=== PATIENT | female | born 1970 | race Caucasian/White ===

== ENCOUNTER 2024-03-24 15:51 | Emergency (ER) | payer MEDICAID, SELFPAY ==
[2024-03-24 16:00] VITALS: BP 134/71; PULSE 102; TEMP 37; O2SAT 98; BMI 28.6
[2024-03-24] MEDS: FAMOTIDINE/PF 20 MG/2 ML VIAL IV (16:13)
--- NOTE | 2024-03-24 16:24 | ED_ITS ---
HPI - Medical Clearance General Chief complaint: Medical Clearance Stated complaint: Intoxication Time Seen by Provider: 03/24/24 15:58 Source: patient Mode of arrival: Wheelchair Limitations: no limitations History of Present Illness HPI Narrative: The patient presenting to us for medical clearance after she presented to [facility] facility for detox, patient mentioned that she was drinking before arrival she denies any complaint except for some epigastric discomfort, the patient did not show any distress and she actually got out of the room to light a cigarette Patient denies any complaints otherwise Related Information Home Medications ?Medication ?Instructions ?Recorded ?Confirmed atorvastatin 20 mg tablet 20 mg PO DAILY 03/24/24 03/24/24 buspirone 10 mg tablet 10 mg PO BID 03/24/24 03/24/24 carbamazepine 200 mg tablet 200 mg PO Q12H 03/24/24 03/24/24 cetirizine 10 mg tablet 10 mg PO DAILY 03/24/24 03/24/24 clonidine HCl 0.1 mg tablet 0.1 mg PO Q8H 03/24/24 03/24/24 cyclobenzaprine 10 mg tablet 10 mg PO Q8H 03/24/24 03/24/24 cyclobenzaprine 5 mg tablet 5 mg PO Q8H 03/24/24 03/24/24 diazepam 5 mg tablet 5 mg PO DAILY 03/24/24 03/24/24 dicyclomine 10 mg capsule 10 mg PO TID 03/24/24 03/24/24 doxepin 25 mg capsule 25 mg PO TID 03/24/24 03/24/24 escitalopram oxalate 10 mg tablet 10 mg PO DAILY 03/24/24 03/24/24 famotidine 40 mg tablet 40 mg PO DAILY 03/24/24 03/24/24 fluoxetine 10 mg capsule 50 mg PO DAILY 03/24/24 03/24/24 gabapentin 300 mg capsule 300 mg PO DAILY 03/24/24 03/24/24 hydroxyzine HCl 25 mg tablet 25 mg PO Q8H 03/24/24 03/24/24 Previous Rx's ?Medication ?Instructions ?Recorded potassium chloride 20 mEq oral 40 meq PO DAILY 5 days #5 ea 03/24/24 packet Allergies Allergy/AdvReac Type Severity Reaction Status Date / Time No Known Drug Allergies Allergy Verified 03/24/24 16:04 Review of Systems ROS Status of ROS 10 or more systems reviewed and unremark able except as noted in history and below Exam Narrative Exam Narrative: Nurses notes and vital signs reviewed and patient is not hypoxic. General: Well-appearing and in no apparent distress. Skin: Warm, dry, no pallor noted. No rash. Head: Normocephalic, atraumatic. Neck: Supple, non-tender. Eye: Pupils are equal, round and EOMI. No scleral icterus. Ears, Nose, Mouth, and Throat: TM are clear, no nasal mucosal hypertrophy. Oral mucosa is moist, no posterior oropharynx erythema, uvula is mid-line Cardiovascular: Regular Rate and Rhythm without murmur, gallop or rub. Respiratory: No accessory muscle use or respiratory distress. Lungs are clear to auscultation, no wheezing, rales or rhonchi Chest Wall: no tenderness Back: No midline thoracic or lumbar vertebral tenderness. No CVA tenderness Musculoskeletal: normal ROM, no calf or popliteal tenderness, no lower extremity edema/swelling GI: Abdomen is soft, non-distended. Normal bowel sounds. No masses appreciated. No tenderness to palpation. No rebound, guarding, or rigidity noted. Neurological: A&O x1 and intoxicated. No cranial nerve dysfunction observed. No truncal ataxia. Moves all extremities. Sensation intact. Psychiatric: Cooperative and interactive. Normal mood and affect. Constitutional Vital Signs, click to edit/add: Last Vital Signs Temp 98.6 F 03/24/24 16:00 Pulse 102 H 03/24/24 16:00 Resp 18 03/24/24 16:00 BP 134/71 03/24/24 16:00 Pulse Ox 98 03/24/24 16:00 O2 Del Method Room Air 03/24/24 16:00 Course Vital Signs Vital signs: Vital Signs Temperature 98.6 F 03/24/24 16:00 Pulse Rate 102 H 03/24/24 16:00 Respiratory Rate 18 03/24/24 16:00 Blood Pressure 134/71 03/24/24 16:00 Pulse Oximetry 98 03/24/24 16:00 Oxygen Delivery Method Room Air 03/24/24 16:00 Temperature 98.6 F 03/24/24 16:00 Pulse Rate 102 H 03/24/24 16:00 Respiratory Rate 18 03/24/24 16:00 Blood Pressure 134/71 03/24/24 16:00 Pulse Oximetry 98 03/24/24 16:00 Oxygen Delivery Method Room Air 03/24/24 16:00 MDM - Medical Clearance MDM Narrative Medical decision making narrative: The patient EKG showing sinus rhythm with a heart rate of 89 no hypokalemic changes The patient CBC and chemistry shows a sodium of 124 which is according to the patient history is mostly chronic although the patient alcohol level was above 350 Potassium is 2.7 with no EKG changes Patient provided with potassium in the ER she did not want to be in the ER and she was asking to leave as soon as she got here and she also got out of the ER to smoke a cigarette and came back The patient was provided with p.o. potassium in the ER she was also provided with a prescription of potassium Regarding the patient's sodium is mostly at moderate level and mostly chronic with the patient history the patient will be discharged back to [facility] for detox and I did speak with Enoch in the management of [facility] and details of the management of the patient regarding repeating the sodium tomorrow and encouraging p.o. fluid today And I did explain the importance of not correcting the sodium very quickly also the patient will be provided with p.o. potassium here she was discharged with p.o. potassium to go home and the level of potassium need to be repeated Lab Data Labs: Lab Results 03/24/24 Range/Units 16:11 WBC 6.6 (4.0-11.0) 10^3/uL RBC 4.08 L (4.20-5.40) 10^6/uL Hgb 11.9 L (12.0-16.0) g/dL Hct 34.2 L (36.0-48.0) % MCV 83.8 (81.0-99.0) fL MCH 29.2 (26.7-34.0) pg MCHC 34.8 (29.9-35.2) g/dL RDW 15.6 H (11.0-15.0) % Plt Count 223 (150-450) 10^3/uL MPV 9.5 (9.5-13.5) fL Neut % (Auto) 57.9 (43.0-75.0) % Lymph % (Auto) 31.0 (20.5-60.0) % [place] % (Auto) 10.1 (1.7-12.0) % Eos % (Auto) 0.3 L (0.9-7.0) % Baso % (Auto) 0.5 (0.2-2.0) % Neut # (Auto) 3.8 (1.4-6.5) 10^3/uL Lymph # (Auto) 2.1 (1.2-3.8) 10^3/uL [place] # (Auto) 0.7 (0.3-0.8) 10^3/uL Eos # (Auto) 0.0 (0.0-0.7) 10^3/uL Baso # (Auto) 0.0 (0.0-0.1) 10^3/uL Abs Immat Gran (auto) 0.01 (0.00-0.03) 10^3/uL Imm/Tot Granulo (auto) 0.2 (0.0-0.5) % Sodium 124 L* (136-145) mmol/L Potassium 2.7 L* (3.5-5.1) mmol/L Chloride 85 L (98-107) mmol/L Carbon Dioxide 25.5 (21.0-32.0) mmol/L Anion Gap 16.2 BUN 6.0 L (7.0-18.0) mg/dL Creatinine 0.57 (0.55-1.02) mg/dL Est GFR ( Amer) >60 (>=60) Est GFR (Non-Af Amer) >60 (>=60) BUN/Creatinine Ratio 10.5 Glucose 89 (74-106) mg/dL Calcium 8.3 L (8.5-10.1) mg/dL Total Bilirubin 0.5 (0.2-1.0) mg/dL AST 81 H (15-37) U/L ALT 74 H (14-59) U/L Alkaline Phosphatase 127 H (46-116) U/L Total Protein 7.2 (6.4-8.2) g/dL Albumin 3.6 (3.4-5.0) g/dL Globulin 3.6 g/dL Albumin/Globulin Ratio 1.0 Ethanol Quant 351 mg/dL Discharge Plan Discharge Stand Alone Forms: Portal Instructions Chief Complaint: Medical Clearance Clinical Impression: Alcohol abuse, Chronic hyponatremia, Chronic hypokalemia Patient Disposition: Home, Self-Care Time of Disposition Decision: 16:30 Condition: Good Prescriptions / Home Meds: New potassium chloride 20 mEq packet 40 meq PO DAILY 5 Days Qty: 5 0RF No Action atorvastatin 20 mg tablet 20 mg PO DAILY buspirone 10 mg tablet 10 mg PO BID carbamazepine 200 mg tablet 200 mg PO Q12H Rx Instructions: 8 am and 5 pm cetirizine 10 mg tablet 10 mg PO DAILY clonidine HCl 0.1 mg tablet 0.1 mg PO Q8H cyclobenzaprine 10 mg tablet 10 mg PO Q8H cyclobenzaprine 5 mg tablet 5 mg PO Q8H diazepam 5 mg tablet 5 mg PO DAILY dicyclomine 10 mg capsule 10 mg PO TID doxepin 25 mg capsule 25 mg PO TID escitalopram oxalate 10 mg tablet 10 mg PO DAILY famotidine 40 mg tablet 40 mg PO DAILY fluoxetine 10 mg capsule 50 mg PO DAILY gabapentin 300 mg capsule 300 mg PO DAILY hydroxyzine HCl 25 mg tablet 25 mg PO Q8H Print Language: Spanish Instructions: Hyponatremia (ED), Hypokalemia (ED), Abuse of Alcohol (ED) Referrals: Physician,Non-Staff, MD [Primary Care Provider] - 1 week
[2024-03-24 16:39] LABS: Basophils Percent Auto 0.5 % (0.2-2.0); Eosinophils Percent Auto 0.3 % (0.9-7.0); Hematocrit 34.2 % (36.0-48.0); Hemoglobin 11.9 g/dL (12.0-16.0); Immature Granulocytes Abs Auto 0.01 10^3/uL (0.00-0.03); Immature Granulocytes Pct Auto 0.2 % (0.0-0.5); Lymphocytes Absolute Auto 2.1 10^3/uL (1.2-3.8); Mean Corpuscular HGB Conc 34.8 g/dL (29.9-35.2); Mean Corpuscular Hemoglobin 29.2 pg (26.7-34.0); Mean Corpuscular Volume 83.8 fL (81.0-99.0); Mean Platelet Volume 9.5 fL (9.5-13.5); Monocytes Absolute Auto 0.7 10^3/uL (0.3-0.8); Monocytes Percent Auto 10.1 % (1.7-12.0); Neutrophils Absolute Auto 3.8 10^3/uL (1.4-6.5); Neutrophils Percent Auto 57.9 % (43.0-75.0); Platelet Count 223 10^3/uL (150-450); Red Blood Count 4.08 10^6/uL (4.20-5.40); Red Cell Distribution Width 15.6 % (11.0-15.0); White Blood Count 6.6 10^3/uL (4.0-11.0)
[2024-03-24 16:53] LABS: Alanine Aminotransferase 74 U/L (14-59); Albumin Level 3.6 g/dL (3.4-5.0); Alkaline Phosphatase 127 U/L (46-116); Anion Gap 16.2; Aspartate Amino Transferase 81 U/L (15-37); BUN Creatinine Ratio 10.5; Bilirubin Total 0.5 mg/dL (0.2-1.0); Calcium 8.3 mg/dL (8.5-10.1); Carbon Dioxide 25.5 mmol/L (21.0-32.0); Chloride 85 mmol/L (98-107); Estimated GFR (African America >60 (>=60); Estimated GFR (Non-African Ame >60 (>=60); Globulin 3.6 g/dL; Glucose 89 mg/dL (74-106); Total Protein 7.2 g/dL (6.4-8.2)
[2024-03-24 16:55] LABS: Ethanol 351 mg/dL
[2024-03-24 16:59] LABS: Potassium 2.7 mmol/L (3.5-5.1); Sodium 124 mmol/L (136-145)
[2024-03-24] MEDS: POTASSIUM BICARBONATE/CIT 25 MEQ TABLET EFF 50 MEQ PO (17:17)
--- NOTE | 2024-03-24 17:22 | ECG_ITS ---
[facility] Test Date: 2024-03-24 Pat Name: LEA CAMPOS Department: Room: - Gender: Female Field Examiner: : 1970 Requested By: Order Number: [id number] Reading MD: MADDY ISIDRO Measurements Intervals [place] Rate: 89 P: 33 NE: 150 QRS: -29 QRSD: 108 T: 22 QT: 406 QTc: 453 Interpretive Statements 1100 Sinus rhythm 2440 Incomplete right bundle branch block 7202 Moderate left axis deviation 8304 Long QTc interval 9150 abnormal ECG No previous ECG available for comparison Electronically Signed On 03-24-2024 17:54:55 EDT by MADDY ISIDRO
--- NOTE | 2024-03-24 17:42 | PC.NURSE ---
Labs start coming back while pt waiting for ride back to [facility]. Pt given po potassium and ER DR Crowley spoke with [facility] director re: labs that have come back. Plan made for pt to take fluids, prescription for Potassium sent back with pt so pt is able to continue with in rehab. And [facility] will re-check blood work again while in rehab. Staff [facility] informed to return pt for any problems or concerns and d/c instructions covered with Staff and prescription given to Staff picking up pt.
== END 2024-03-24 17:45 | disposition home or self-care (01) ==
PROVIDERS: Emergency Provider Emergency Medicine
DX: F10.10 Alcohol abuse, uncomplicated (principal); Y90.8 Blood alcohol level of 240 mg/100 ml or more; E87.1 Hypo-osmolality and hyponatremia; E87.6 Hypokalemia
CPT/HCPCS: 36415; 80053; 80320; 83690; 85025; 93005; 96374; 99284